=== PATIENT | female | born 1985 | race Caucasian/White ===

== ENCOUNTER 2017-02-18 22:24 | Emergency (ER) | payer OTHER ==
[~2017-02-18] VITALS: Ht 167.6 cm; Wt 59.7 kg
[~2017-02-18 22:24] MED LIST: NAPROXEN500 MG PO; NOHOMEMEDS
[2017-02-18 23:46] LABS: HEMATOCRIT 36.5 % (36.0-46.0); MCH 24.6 PG (29.0-34.0); MCHC 31.5 G/DL (30.0-36.0); MEAN PLAT.VOLUME 10.8 uM^3 (9.5-12.4); PLATELET COUNT 249 K/uL (156-360); RBC DIS.WIDTH-CV 15.5 % (11.8-14.6); RBC DIS.WIDTH-SD 43.6 % (39-53); RED BLOOD COUNT 4.68 M/uL (3.80-5.20)
[2017-02-18 23:56] LABS: CHLORIDE 100 mEq/L (99-109); POTASSIUM 3.6 mEq/L (3.7-5.4); SODIUM 135 mEq/L (136-147)
[2017-02-18 23:58] LABS: GLUCOSE 93 mg/dL (70-99)
[2017-02-18 23:59] LABS: ANION GAP 11 MEQ/L (2-14)
[2017-02-19] LABS: TOTAL BILIRUBIN 0.7 mg/dL (0.0-1.0)
[2017-02-19 00:02] LABS: ALKALINE PHOSPHATASE 65 IU/L (3-129); GFR ESTIMATE (CALCULATED) > 59 mL/min/
[2017-02-19 00:03] LABS: UREA NITROGEN (BUN) 15 mg/dL (9-23)
[2017-02-19 00:04] LABS: INFLUENZA A VIRAL ANTIGEN NEGATIVE; INFLUENZA B VIRAL ANTIGEN NEGATIVE
[2017-02-19 00:08] LABS: ADD MIUA? NO; BILIRUBIN NEGATIVE; BLOOD NEGATIVE; COLOR YELLOW ((YELLOW)); GLUCOSE (STRIP) NEGATIVE; KETONES 5; LEUKOCYTES NEGATIVE; NITRITE NEGATIVE; PROTEIN (STRIP) NEGATIVE; UCUL ADDED? NO; UROBILINOGEN 0.2 MG/DL (0.2-1.0)
[2017-02-19 00:10] LABS: QUANTITATIVE HCG < 4.0 MIU/ML
[2017-02-19] MEDS ORDERED: ZOFRAN ODT4 MG PO (00:19)
[2017-02-19 00:40] VITALS: BP 115/72
== END 2017-02-19 00:41 | disposition home or self-care (01) ==
LOC: EME 22:24
PROVIDERS: Physician Assistant
DX: B34.9 Viral infection, unspecified (principal); R11.2 Nausea with vomiting, unspecified; F17.200 Nicotine dependence, unspecified, uncomplicated
CPT/HCPCS: 71020; 80053; 81003; 84702; 85027; 87502; 99281; 99284

== ENCOUNTER 2017-03-09 14:46 | Emergency (ER) | payer SELFPAY ==
[~2017-03-09] VITALS: Ht 167.6 cm; Wt 58.9 kg
[~2017-03-09 14:46] MED LIST changes: +ZOFRAN ODT4 MG PO
[2017-03-09 15:11] LABS: HEMATOCRIT 36.7 % (36.0-46.0); MCH 23.9 PG (29.0-34.0); MCHC 30.5 G/DL (30.0-36.0); MCV 78.4 FL (83-99); MEAN PLAT.VOLUME 10.5 uM^3 (9.5-12.4); PLATELET COUNT 254 K/uL (156-360); RBC DIS.WIDTH-CV 14.8 % (11.8-14.6); RBC DIS.WIDTH-SD 42.4 % (39-53); RED BLOOD COUNT 4.68 M/uL (3.80-5.20); WHITE BLOOD COUNT 8.5 K/uL (4.1-10.2)
[2017-03-09 15:18] LABS: CHLORIDE 102 mEq/L (99-109); POTASSIUM 3.8 mEq/L (3.7-5.4); SODIUM 138 mEq/L (136-147)
[2017-03-09 15:20] LABS: GLUCOSE 77 mg/dL (70-99)
[2017-03-09 15:21] LABS: ANION GAP 8 MEQ/L (2-14)
[2017-03-09 15:24] LABS: GFR ESTIMATE (CALCULATED) > 59 mL/min/; UREA NITROGEN (BUN) 14 mg/dL (9-23)
[2017-03-09 15:33] LABS: ADD MIUA? YES; BILIRUBIN NEGATIVE; BLOOD SMALL; COLOR YELLOW ((YELLOW)); GLUCOSE (STRIP) NEGATIVE; KETONES NEGATIVE; LEUKOCYTES LARGE; NITRITE NEGATIVE; PROTEIN (STRIP) NEGATIVE; SPECIFIC GRAVITY 1.009 (1.000-1.030); UROBILINOGEN 0.2 MG/DL (0.2-1.0)
[2017-03-09 15:43] LABS: BACTERIA RARE /HPF; EPITHELIAL CELLS RARE /HPF; MUCUS TRACE /LPF; RED BLOOD CELLS 0-5 /HPF (0-5); UCUL ADDED? YES; WHITE BLOOD CELLS 40-50 /HPF (0-5); WHITE BLOOD CELLS CLUMP OCC /HPF (0-5)
[2017-03-09 15:58] LABS: QUANTITATIVE HCG < 4.0 MIU/ML
[2017-03-09] MEDS ORDERED: PYRIDIUM200 MG PO (18:24)
[2017-03-09] MEDS ORDERED: KEFLEX500 MG PO (18:24)
[2017-03-09] MEDS ORDERED: INDOCIN50 MG PO (18:34)
[2017-03-09 18:43] VITALS: BP 123/57
== END 2017-03-09 18:44 | disposition home or self-care (01) ==
LOC: EME 14:46
DX: N39.0 Urinary tract infection, site not specified (principal); F32.9 Major depressive disorder, single episode, unspecified; F41.9 Anxiety disorder, unspecified; F42.9 Obsessive-compulsive disorder, unspecified; F19.10 Other psychoactive substance abuse, uncomplicated; F17.200 Nicotine dependence, unspecified, uncomplicated
CPT/HCPCS: 74176; 80048; 81003; 84702; 85027; 87077; 87086; 87186; 99281; 99283; J3010

== ENCOUNTER 2017-12-26 13:13 | Emergency (ER) | payer OTHER ==
[~2017-12-26] VITALS: Ht 167.6 cm; Wt 65.4 kg
[~2017-12-26 13:13] MED LIST changes: +INDOCIN50 MG PO; +KEFLEX500 MG PO; +PYRIDIUM200 MG PO
[2017-12-26 14:50] LABS: CHLORIDE 107 mEq/L (99-109); HEMATOCRIT 37.1 % (36.0-46.0); HEMOGLOBIN 11.5 G/DL (11.9-15.5); MCV 74.3 FL (83-99); PLATELET COUNT 376 K/uL (156-360); RBC DIS.WIDTH-CV 15.9 % (11.8-14.6); RBC DIS.WIDTH-SD 42.5 % (39-53); RED BLOOD COUNT 4.99 M/uL (3.80-5.20); SODIUM 137 mEq/L (136-147); WHITE BLOOD COUNT 10.3 K/uL (4.1-10.2)
[2017-12-26 14:52] LABS: GLUCOSE 105 mg/dL (70-99)
[2017-12-26 14:56] LABS: CREATININE 0.7 mg/dL (0.6-1.3); GFR ESTIMATE (CALCULATED) > 59 mL/min/; UREA NITROGEN (BUN) 9 mg/dL (9-23)
[2017-12-26] MEDS ORDERED: BACTRIM,SEPT1 TABLET PO (15:26)
[2017-12-26 15:42] VITALS: BP 128/76
== END 2017-12-26 15:45 | disposition home or self-care (01) ==
LOC: EME 13:13
PROVIDERS: Physician Assistant
PROC: 0H9EXZZ Drainage of Left Lower Arm Skin, External Approach (ICD-10-PCS; principal; 2017-12-26)
DX: L02.414 Cutaneous abscess of left upper limb (principal); F11.10 Opioid abuse, uncomplicated; F17.200 Nicotine dependence, unspecified, uncomplicated
CPT/HCPCS: 73090; 80048; 83605; 85027; 87040; 87070; 87075; 87076; 87205; 99281; 99284